=== PATIENT | female | born 1955 | race Caucasian/White ===

== ENCOUNTER 2017-07-29 08:20 | Day surgery (SDC) | payer OTHER ==
[~2017-07-29] VITALS: Ht 152.4 cm; Wt 65.6 kg
[~2017-07-29 08:20] MED LIST: PARO20TA58
[2017-07-29 09:22] VITALS: Ht 152.4 cm; Wt 65.6 kg
[2017-07-29] MEDS ORDERED: NO MEDS. (09:47)
[2017-07-29 09:50] VITALS: BP 108/59; PULSE 55; RESP 16
--- NOTE | 2017-07-29 10:46 | OPPN ---
Date/Time of Note Date/Time of Note DATE: 07/29/17 TIME: 10:45 Operative Report Preoperative Diagnosis Screening Postoperative Diagnosis Poor prep and incomplete exam Operation/Procedure Performed Flexible sigmoidoscopy Surgeon see signature line patent legal assistant None Anesthesia: moderate sedation Estimated blood loss: none Transfusion Required none Specimen None Grafts/Implants none Complications none KELLY LE MD Jul 29, 2017 10:46
[2017-07-29] MEDS ORDERED: FENTAnyl 50 MCG/ML VIAL ONE (10:49)
[2017-07-29] MEDS ORDERED: MIDAZOLAM 1 MG/ML 2 ML INJ ONE (10:49)
--- NOTE | 2017-07-30 06:34 | GILP ---
DATE OF PROCEDURE: NAME OF PROCEDURE: Flexible sigmoidoscopy. SURGEON: Kelly Mendes MD PREOPERATIVE DIAGNOSIS: Screening colonoscopy. POSTOPERATIVE DIAGNOSES: Poor prep with solid stool making the exam incomplete. INDICATION FOR THE PROCEDURE: Ms. Kosta Alvarez is a 62-year-old female patient who was schedule d for screening colonoscopy. The procedure and possible complications were well explained to the patient. The patient understood and consented to the procedure. DESCRIPTION OF PROCEDURE: Under the influence of fentanyl and Versed, the colonoscope was carefully introduced in the rectum and it was advanced to the sigmoid colon. The patient had a very poor pre p with solid stool preventing complete colonoscopy. She tolerated the procedure well and there was no complication from the procedure. At the end of procedure, she was awake with stable vital signs and she was discharged home to the care of her [facility]. IMPRESSION: Poor prep making the exam incomplete. PLAN: The patient will need repeat colonoscopy with better preparation. Dictated By: KELLY MITCHELL/ERIC Conf#: [id number] DID#: [id number]
== END 2017-07-29 15:26 | disposition home or self-care (01) ==
LOC: GIL 08:20
PROVIDERS: ATTEND Internal Medicine Gastroenterology
DX: Z12.11 Encounter for screening for malignant neoplasm of colon (principal)
CPT/HCPCS: 45378; J2250; J3010; Z7610